=== PATIENT | male | born 1955 | race Caucasian/White ===

== ENCOUNTER 2020-12-19 10:24 | Emergency (ER) | payer OTHER, MEDICARE ==
[~2020-12-19] VITALS: Ht 170.2 cm; Wt 99.8 kg
[2020-12-19] MEDS ORDERED: ATORVASTATIN CA20 MG PO (11:47)
[2020-12-19] MEDS ORDERED: TELMISARTAN40 MG PO (11:47)
[2020-12-19] MEDS ORDERED: CARVEDILOL12.5 MG PO (11:47)
[2020-12-19] MEDS ORDERED: SPIRONOLACTONE25 MG PO (11:47)
[2020-12-19] MEDS ORDERED: PREDNISONE5 MG PO (11:47)
--- NOTE | 2020-12-19 16:27 | EKG ---
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
== END 2020-12-19 11:09 | disposition short-term general hospital (02) ==
LOC: ED 10:24
DX: I21.19 ST elevation (STEMI) myocardial infarction involving other coronary artery of inferior wall (principal); I21.29 ST elevation (STEMI) myocardial infarction involving other sites; Z20.822 Contact with and (suspected) exposure to COVID-19; Z88.0 Allergy status to penicillin; Z95.1 Presence of aortocoronary bypass graft
CPT/HCPCS: 71045; 80053; 83735; 84484; 85025; 93005; 93010; 96374; 96375; 99285-25; C9803; J1644; J2270; J2405; U0003